=== PATIENT | female | born 1985 | race Caucasian/White ===

== ENCOUNTER 2016-04-23 19:39 | Emergency (ER) | payer BC ==
[~2016-04-23] VITALS: Ht 157.5 cm; Wt 68.1 kg
[~2016-04-23 19:39] MED LIST: AVELOX400 MG PO; ENDOCET 5-3251 EACH PO; FEOSOL325 MG PO; Flintstones PO; MOTRIN600 MG PO; MOTRIN800 MG PO; Motrin PO; NAPROXEN500 MG PO; Percocet 5/325,Endoc PO; VALIUM2 MG PO; VICODIN 5-3001 EACH PO
[2016-04-23] MEDS ORDERED: MEDROL DOSEPAK4 MG PO (21:08)
[2016-04-23] MEDS ORDERED: PERCOCET 5/31 TABLET PO (21:08)
[2016-04-23] MEDS ORDERED: FLEXERIL10 MG PO (21:08)
[2016-04-23] MEDS ORDERED: ZOFRAN ODT4 MG PO (22:49)
[2016-04-23 22:51] VITALS: BP 152/80
== END 2016-04-23 22:51 | disposition home or self-care (01) ==
LOC: EME 19:39
DX: M54.12 Radiculopathy, cervical region (principal); M25.519 Pain in unspecified shoulder
CPT/HCPCS: 72040; 99281; 99283